=== PATIENT | male | born 1940 | race Caucasian/White ===

== ENCOUNTER 2018-03-27 12:40 | Outpatient (CLI) | payer MEDICARE, OTHER ==
[2016-07-15 22:06] VITALS: BP 158/92
--- NOTE | 2018-03-27 18:24 | Diagnostic Imaging Report ---
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 [address] Report Submission Date: Mar 27, 2018 2:44:20 PM CDT Patient Study Name: VOLODYMYR MADDEN Date: Mar 27, 2018 1:11:44 PM CDT Modality Type: CT Gender: M Description: CT ABD PELVIS W/ CON : 36 Institution: [facility] Physician: SANDOVAL TORIBIO ([facility]) Examination: CT Abdomen/pelvis History: CT A/P W/ CONTRAST. LOWER ABDOMINAL/PELVIC PAIN FOR ABOUT 6 MONTHS, WORSENING. INGUINAL HERNIA REPAIR W/ MESH IN 2003. PRIOR RUQ US IN JANUARY WHICH WAS UNREMARKABLE. (Hx) Comparison exams: None available Technique: CT Abdomen/pelvis with IV protocol. Findings: Liver, spleen, adrenals, pancreas, kidneys and gallbladder are without gross irregularity. No abnormal enhancement. No gallstone. No suspicious renal calcifications. Ureters not well visualized. Abdominal aorta demonstrates peripheral atherosclerotic disease. Enlarged prostate gland. Pelvic phleboliths. Cardiac silhouette is not enlarged. No pericardial effusion. No abnormal small bowel dilation. Stool within the large bowel limiting sensitivity. No mesenteric inflammatory changes or free fluid. Sigmoid diverticula. Osseous structures demonstrate degenerative changes, end plate narrowing and curvature to the right. Lung bases demonstrate atelectasis. No gross infiltrate. No effusion. Impression: No abdominal mass or acute upper abdominal organ inflammatory process. No obvious gallstone. No suspicious renal calcification. Stool throughout the large bowel - mild constipation. Sigmoid diverticulosis. No overt diverticulitis. Enlarged prostate gland. Lung base scarring /atelectasis. No focal consolidation or effusion. Electronically signed on Mar 27, 2018 2:44:20 PM CDT by: Shaun ORTIZ
== END 2018-03-27 12:45 ==
LOC: RAD 12:40
PROVIDERS: ATTEND Nurse Practitioner Family
DX: R10.9 Unspecified abdominal pain (principal); R10.2 Pelvic and perineal pain; R11.0 Nausea; Z98.890 Other specified postprocedural states
CPT/HCPCS: 74177; Q9967